=== PATIENT | male | born 1960 | race Caucasian/White ===

== ENCOUNTER 2017-11-14 11:58 | Outpatient (RCR) | payer BC ==
[~2017-11-14 11:58] MED LIST: ASPIR 8181 MG PO; ASPIRIN325 MG PO; COREG CR20 MG PO; IBUPROFEN PO; NIACIN500 M1 PO; NORCO 10-325 T1 EACH PO; SIMVASTATIN40 MG PO
== END 2017-11-22 ==
LOC: OT 11:58
PROVIDERS: ATTEND Plastic Surgery
DX: G56.32 Lesion of radial nerve, left upper limb (principal)

== ENCOUNTER 2017-12-19 10:00 | Outpatient (RCR) | payer BC | END 2017-12-22 | LOC: OT 10:00 | PROVIDERS: ATTEND Plastic Surgery | DX: S54.21XA Injury of radial nerve at forearm level, right arm, initial encounter (principal) | CPT/HCPCS: 97139 ==

== ENCOUNTER 2017-12-24 11:03 | Outpatient (RCR) | payer BC | END 2018-01-22 | LOC: OT 11:03 | PROVIDERS: ATTEND Plastic Surgery | DX: S54.21XA Injury of radial nerve at forearm level, right arm, initial encounter (principal) | CPT/HCPCS: 97139 ==

== ENCOUNTER → 2018-09-04 | Day surgery (SDC) | payer BC ==
[2018-09-01 14:49] LABS: BASOPHILS # (AUTO) 0.1 (0.0-0.1); BASOPHILS % 0.9 % (0.0-1.0); EOSINOPHILS # (AUTO) 0.4 (0.0-0.4); EOSINOPHILS % 4.3 % (0.0-6.0); HEMATOCRIT 50.7 % (38.2-49.6); HEMOGLOBIN 17.1 g/dL (14.0-18.0); LYMPHOCYTES # (AUTO) 1.8 (1.0-3.2); LYMPHOCYTES % 19.3 % (18.0-39.1); MEAN CORPUSCULAR HEMOGLOBIN 29.7 pg (28-32); MEAN CORPUSCULAR HGB CONC 33.7 g/dL (31-35); MONOCYTES # (AUTO) 0.9 (0.2-0.8); MONOCYTES % 9.4 % (4.4-11.3); NEUTROPHILS # (AUTO) 6.1 (2.1-6.9); NEUTROPHILS % 65.9 % (38.7-80.0); PLATELET COUNT 253 x10e3/uL (140-360); RED BLOOD COUNT 5.76 x10e6/uL (4.3-5.7); RED CELL DISTRIBUTION WIDTH 13.2 % (11.7-14.4)
[2018-09-01 15:08] LABS: ALANINE AMINOTRANSFERASE 30 IU/L (0-55); ALBUMIN 4.3 g/dL (3.5-5.0); ALBUMIN/GLOBULIN RATIO 1.4 (0.8-2.0); ALKALINE PHOSPHATASE 94 IU/L (40-150); ANION GAP 14.4 mmol/L (8-16); BLOOD UREA NITROGEN 9 mg/dL (7-26); BUN/CREATININE RATIO 11 (6-25); CALCIUM 9.9 mg/dL (8.4-10.2); CARBON DIOXIDE 27 mmol/L (22-29); CHLORIDE 100 mmol/L (98-107); CREATININE, SERUM 0.79 mg/dL (0.72-1.25); EST GLOMERULAR FILTRATION RATE > 60 ML/MIN (60-); GLUCOSE 77 mg/dL (74-118); POTASSIUM 4.4 mmol/L (3.5-5.1); SODIUM 137 mmol/L (136-145)
[2018-09-04] VITALS (8 sets, daily range): BP systolic 111–145; BP diastolic 77–111
[~2018-09-04] VITALS: Ht 165.1 cm; Wt 68.0 kg
[~2018-09-04] MED LIST changes: +ATORVASTATIN CA20 MG PO; +BC POWDER PACK1 EAC1 PO; +COREG12.5 MG PO; +FENTANYL CITRATE/PF 100MCG/2 ML INJ ONE; +HEPARIN SOD/SOD CHLORIDE 2,000 ML ONE; +IOPAMIDOL 370 MG/ML 200 ML INFUS..BTL INJ ONE; +LIDOCAINE HCL 2% LOCAL 20 ML VIAL ONE; +MIDAZOLAM HCL 2 MG/2 ML VIAL ONE; +SODIUM CHLORIDE 0.9% 1000ML 1,000 ML ONE; +SUDAFED 12 HOU120 MG PO; +VERAPAMIL HCL 2.5 MG/ML 2 ML VIAL ONE
--- NOTE | 2018-09-04 15:15 | NUR ---
IV to left antecubital removed and dressing placed per policy. Dressing to right wrist appears to be clean,dry, and intact at this time. 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 Patient discharged with belongings. No distress nted at time of discharge.
--- NOTE | 2018-09-04 21:23 | Operative Report ---
DATE OF PROCEDURE: 09/04/2018 SURGEON: Prem Fitzpatrick DO PROCEDURES PERFORMED: 1. Conscious sedation, 45 minutes. 2. Selective coronary angiography x2. 3. Left heart catheterization with simultaneous LV and aortic pressures. PREPROCEDURE DIAGNOSES: 1. Abnormal noninvasive stress test. 2. Coronary artery disease. POSTPROCEDURE DIAGNOSIS: Multivessel coronary artery disease. ESTIMATED BLOOD LOSS: Less than 20 mL. SPECIMENS REMOVED: None. PROCEDURE IN DETAIL: After informed consent was obtained, the patient was brought to the cardiac catheterization laboratory in a fasting and nonsedated state. Bilateral groins and right wrist were prepped and draped in usual sterile fashion. A 2% lidocaine was instilled over the right anterior wrist for local anesthesia. Using micropuncture needle, the right radial artery was accessed via modified Seldinger technique and a 5/6 slender sheath was placed. Next, diagnostic coronary angiography x2 was performed using a TIG catheter. Next, the aortic valve was difficult to cross with possible aortic stenosis on echocardiography. I crossed the aortic valve using an AL1 and a straight wire with exchanged out for length and catheter. Simultaneous pressures were performed and did not reveal any significant stenosis. The patient tolerated the procedure well. No immediate complications, transferred back to his room in stable condition. Hemostasis was achieved via TR band. PROCEDURE FINDINGS: 1. The distal left main tapers down to 40-50% stenosis. 2. The left anterior descending coronary artery is patent proximally and has a mid previously placed stent with severe 70% to 80% in-stent restenosis. The distal vessel is a medium caliber vessel and wraps around the LV apex. 3. Left circumflex coronary provides two obtuse marginal vessels with mild luminal irregularities. 4. The right coronary artery is chronically occluded in the midportion. The distal vessel fills via collaterals from the left coronary system. 5. Peak aortic root pressure is 154 mmHg. 6. LV peak pressure is 156 mmHg. 7. Left ventricular end-diastolic pressure is 16 mmHg. 8. Multivessel coronary artery disease. RECOMMENDATIONS: The patient will be referred for coronary artery bypass graft surgery. Prem Fitzpatrick DO BM/MODL /[id number]
== END | disposition home or self-care (01) ==
LOC: CATH LAB 09:03
PROVIDERS: ATTEND Internal Medicine Cardiovascular Disease
DX: I25.118 Atherosclerotic heart disease of native coronary artery with other forms of angina pectoris (principal); R94.39 Abnormal result of other cardiovascular function study; Z01.812 Encounter for preprocedural laboratory examination; Z79.82 Long term (current) use of aspirin
CPT/HCPCS: 36415; 80053; 85025; 93458; C1887; J2001; J2250; J7030; Q9967